=== PATIENT | male | born 1935 | race Caucasian/White ===

== ENCOUNTER 2018-06-28 00:32 | Inpatient (IN) | payer MEDICARE, OTHER ==
[~2018-06-28] VITALS: Ht 182.9 cm; Wt 90.9 kg
[~2018-06-28 00:32] MED LIST: FOLI1TAB16 PO; LANS30CA56 PO; MULT-1085 PO; OXYB5TAB29 PO; RAMI5CAP65 PO
[2018-06-28] MEDS ORDERED: normal saline 1000ml 1,000 ML IV ONE (01:00)
[2018-06-28] MEDS ORDERED: normal saline 1000ML IV soln IVB ONE (01:05)
[2018-06-28 01:25] LABS: CLARITY,URINE CLEAR (Clear); COLOR,URINE YELLOW (Yellow); GLUCOSE, URINE NEGATIVE (Neg); KETONES,URINE NEGATIVE (Neg); LEUKOCYTE ESTERASE ,URINE NEGATIVE (Neg); NITRITES, URINE NEGATIVE (Neg); OCCULT BLOOD,URINE NEGATIVE (Neg); PH,URINE 5.5 (4.8-8.0); PROTEIN,URINE NEGATIVE (Neg); UROBILINOGEN,URINE 0.2 E.U/dL (0.2-1.0)
[2018-06-28 01:29] LABS: UA COLLECTION TYPE CLN CATCH MIDSTREAM
[2018-06-28] MEDS ORDERED: DICY10CA88 PO (01:50)
[2018-06-28] MEDS ORDERED: POLY17PO10 PO (01:50)
[2018-06-28] MEDS ORDERED: PANT20TA3 PO (01:50)
[2018-06-28 01:57] LABS: ALANINE AMINOTRANSFERASE 25 U/L (12-78); ALBUMIN 2.1 G/DL (3.4-5.0); ALBUMIN/GLOBULIN RATIO 0.5 (1.1-1.5); ALKALINE PHOSPHATASE 219 IU/L (46-116); ANION GAP 13 (8-16); ASPARTATE AMINO TRANSFERASE 64 U/L (10-37); BASOPHILS # (AUTO) 0.1 X10'3 (0-0.2); BASOPHILS % (AUTO) 0.6 % (0-1); BLOOD UREA NITROGEN 29 MG/DL (7-18); BUN/CREATININE RATIO 14.2 (5.4-32.0); CALCIUM 8.7 MG/DL (8.5-10.1); CHLORIDE 103 MMOL/L (99-107); CREATININE 2.04 MG/DL (0.60-1.10); EOSINOPHILS % (AUTO) 0.3 % (0-6); GLUCOSE 109 MG/DL (70-104); HEMATOCRIT 36.5 % (42.0-52.0); HEMOGLOBIN 11.8 g/dl (14.0-17.9); LYMPHOCYTES # (AUTO) 0.9 X10'3 (1.1-4.8); LYMPHOCYTES % (AUTO) 5.2 % (21-51); MAGNESIUM 1.8 MG/DL (1.5-2.4); MEAN CORPUSCULAR HEMOGLOBIN 23.4 PG (27.0-31.0); MEAN CORPUSCULAR HGB CONC 32.4 % (33.0-36.5); MEAN CORPUSCULAR VOLUME 72.1 FL (78-98); MEAN PLATELET VOLUME 8.7 FL (7.4-10.4); MONOCYTES # (AUTO) 1.5 X10'3 (0-0.9); MONOCYTES % (AUTO) 9.2 % (2-12); NEUTROPHILS # (AUTO) 14.1 X10'3 (1.8-7.7); NEUTROPHILS % (AUTO) 84.7 % (42-75); PHOSPHORUS 3.4 MG/DL (2.3-4.5); PLATELET COUNT 456 X10'3 (140-440); POTASSIUM 3.8 MMOL/L (3.5-5.1); RED BLOOD COUNT 5.06 X10'6 (4.70-6.10); RED CELL DISTRIBUTION WIDTH 17.3 % (11.5-14.5); SODIUM 139 MMOL/L (135-145); TOTAL CARBON DIOXIDE 23.2 MMOL/L (24-32); TOTAL PROTEIN 6.1 G/DL (6.4-8.2); WHITE BLOOD COUNT 16.6 X10'3 (4.5-11.0); eGFR 31 ML/MIN
[2018-06-28] MEDS ORDERED: aspirin 325mg tablet PO ONE (02:10)
[2018-06-28 02:11] LABS: D-DIMER 7.51 MG/L FEU (0-0.50); INR 1.2 INR; PARTIAL THROMBOPLASTIN TIME 28 SECONDS (22-32); PROTHROMBIN TIME 12.4 SECONDS (9.0-12.0)
[2018-06-28] MEDS ORDERED: CefTRIAXone/D5W-Rocephin 1gm 50 ML IV ONE (02:15)
[2018-06-28] MEDS ORDERED: azithromycin/NS 500mg/250ml 250 ML IV ONE (02:15)
[2018-06-28] MEDS ORDERED: ASPI81TA52 PO (02:54)
[2018-06-28] MEDS ORDERED: OMEP40CA37 PO (02:54)
[2018-06-28] MEDS ORDERED: ETOD400T PO (02:54)
[2018-06-28] MEDS ORDERED: GLUC-133 PO (02:54)
[2018-06-28] MEDS ORDERED: ondansetron/PF 4mg/2ml inj IV PRN (04:00)
[2018-06-28] MEDS ORDERED: HYDROcodone/acetaminophen 10/325mg tab PO PRN (04:00)
[2018-06-28] MEDS ORDERED: magnesium hydroxide 30ml (MOM) UD suspension PO PRN (04:00)
[2018-06-28] MEDS ORDERED: acetaminophen 325mg tablet PO PRN ×2 (04:00)
[2018-06-28] MEDS ORDERED: HYDROcodone/acetaminophen 5mg/325mg tablet PO PRN (04:00)
[2018-06-28] MEDS ORDERED: mag hydrox/Alum hydrox/simeth 30ml oral suspension PO PRN (04:00)
[2018-06-28] MEDS: normal saline 1000ml 1,000 ML IV SCH ×3 (04:52→23:24)
[2018-06-28 05:15] VITALS: BP 127/72
[2018-06-28 05:30] LABS: CHOLESTEROL 193 MG/DL (0-200); HDL CHOLESTEROL 24 MG/DL (35-60); LDL CHOLESTEROL 157 MG/DL (50-100); TRIGLYCERIDES 74 MG/DL (20-135)
[2018-06-28 06:00] VITALS: BP 116/70
[2018-06-28 06:31] LABS: LACTIC SEPSIS 1.7 MMOL/L (0.4-2.0)
[2018-06-28] MEDS: pantoprazole 40mg Tablet.DR PO SCH (07:49)
[2018-06-28] MEDS: lisinopril 20mg tablet PO SCH ×2 (07:49→08:00)
[2018-06-28] MEDS: aspirin 81mg tablet.DR PO SCH (07:49)
[2018-06-28] MEDS ORDERED: aspirin 81mg tablet.DR PO SCH (08:00)
[2018-06-28] MEDS ORDERED: enoxaparin 40mg/0.4ml syringe SUBCUT SCH (08:00)
[2018-06-28] MEDS ORDERED: non-formulary drug (Gluc 2KCL/Chondr/Coll Hy/Hy Ac (Glucosamine & Chondroitin Cap) 1 EACH) PO SCH (08:00)
[2018-06-28] MEDS ORDERED: levoFLOXACIN-Levaquin 500mg/D5 100 ML IV SCH ×2 (08:00→21:07)
[2018-06-28 11:00] VITALS: BP 99/54
[2018-06-28 17:48] VITALS: BP 99/54
[2018-06-28 18:00] VITALS: BP 115/66
[2018-06-28] MEDS: atorvastatin 20mg tablet PO SCH (19:46)
[2018-06-28] MEDS ORDERED: enoxaparin 30mg/0.3ml syringe SUBCUT SCH (21:05)
[2018-06-28 22:00] VITALS: BP 125/68
[2018-06-29] VITALS (8 sets, daily range): BP systolic 117–128; BP diastolic 62–72
[2018-06-29 06:53] LABS: ALANINE AMINOTRANSFERASE 21 U/L (12-78); ALBUMIN 1.7 G/DL (3.4-5.0); ALBUMIN/GLOBULIN RATIO 0.5 (1.1-1.5); ALKALINE PHOSPHATASE 174 IU/L (46-116); ANION GAP 11 (8-16); ASPARTATE AMINO TRANSFERASE 59 U/L (10-37); BILIRUBIN,TOTAL 1.6 MG/DL (0.1-1.0); BLOOD UREA NITROGEN 29 MG/DL (7-18); BUN/CREATININE RATIO 18.2 (5.4-32.0); CALCIUM 8.3 MG/DL (8.5-10.1); CHLORIDE 106 MMOL/L (99-107); CREATININE 1.59 MG/DL (0.60-1.10); GLUCOSE 92 MG/DL (70-104); MAGNESIUM 1.7 MG/DL (1.5-2.4); POTASSIUM 3.8 MMOL/L (3.5-5.1); SODIUM 139 MMOL/L (135-145); TOTAL CARBON DIOXIDE 21.6 MMOL/L (24-32); TOTAL PROTEIN 5.3 G/DL (6.4-8.2); eGFR 42 ML/MIN
[2018-06-29 06:57] LABS: BASOPHILS % (AUTO) 0.3 % (0-1); EOSINOPHILS # (AUTO) 0.3 X10'3 (0-0.9); EOSINOPHILS % (AUTO) 2.5 % (0-6); HEMATOCRIT 34.2 % (42.0-52.0); HEMOGLOBIN 10.8 g/dl (14.0-17.9); LYMPHOCYTES # (AUTO) 0.8 X10'3 (1.1-4.8); LYMPHOCYTES % (AUTO) 6.5 % (21-51); MEAN CORPUSCULAR HEMOGLOBIN 23.3 PG (27.0-31.0); MEAN CORPUSCULAR HGB CONC 31.6 % (33.0-36.5); MEAN CORPUSCULAR VOLUME 73.7 FL (78-98); MEAN PLATELET VOLUME 8.5 FL (7.4-10.4); MONOCYTES # (AUTO) 1.4 X10'3 (0-0.9); MONOCYTES % (AUTO) 12.1 % (2-12); NEUTROPHILS # (AUTO) 9.2 X10'3 (1.8-7.7); NEUTROPHILS % (AUTO) 78.6 % (42-75); PLATELET COUNT 402 X10'3 (140-440); RED BLOOD COUNT 4.64 X10'6 (4.70-6.10); RED CELL DISTRIBUTION WIDTH 18.6 % (11.5-14.5); WHITE BLOOD COUNT 11.8 X10'3 (4.5-11.0)
[2018-06-29 07:12] LABS: INR 1.3 INR; PROTHROMBIN TIME 12.8 SECONDS (9.0-12.0)
[2018-06-29] MEDS: pantoprazole 40mg Tablet.DR PO SCH (07:24)
[2018-06-29] MEDS: atorvastatin 20mg tablet PO SCH (07:24)
[2018-06-29] MEDS: aspirin 81mg tablet.DR PO SCH (07:25)
[2018-06-29] MEDS: lisinopril 20mg tablet PO SCH (07:25)
[2018-06-29] MEDS ORDERED: predniSONE 20 mg tablet PO SCH (09:00)
[2018-06-29] MEDS ORDERED: LIDOcaine 0.5% (5mg/ml) 50ml vial ONE (13:37)
[2018-06-29] MEDS ORDERED: dexamethasone 4mg/ml inj IM SCH (14:00)
[2018-06-29] MEDS: dexamethasone 4mg/ml inj IV SCH ×2 (14:00→20:33)
[2018-06-30] VITALS: BP 125/71
[2018-06-30] MEDS: dexamethasone 4mg/ml inj IV SCH ×4 (01:55→21:05)
[2018-06-30 06:18] LABS: BASOPHILS % (AUTO) 0.2 % (0-1); EOSINOPHILS # (AUTO) 0.3 X10'3 (0-0.9); EOSINOPHILS % (AUTO) 1.7 % (0-6); HEMATOCRIT 36.4 % (42.0-52.0); HEMOGLOBIN 11.4 g/dl (14.0-17.9); LYMPHOCYTES # (AUTO) 0.6 X10'3 (1.1-4.8); LYMPHOCYTES % (AUTO) 3.8 % (21-51); MEAN CORPUSCULAR HEMOGLOBIN 23.1 PG (27.0-31.0); MEAN CORPUSCULAR HGB CONC 31.3 % (33.0-36.5); MEAN CORPUSCULAR VOLUME 73.8 FL (78-98); MEAN PLATELET VOLUME 8.2 FL (7.4-10.4); MONOCYTES # (AUTO) 0.5 X10'3 (0-0.9); MONOCYTES % (AUTO) 3.7 % (2-12); NEUTROPHILS # (AUTO) 13.4 X10'3 (1.8-7.7); NEUTROPHILS % (AUTO) 90.6 % (42-75); PLATELET COUNT 419 X10'3 (140-440); RED BLOOD COUNT 4.93 X10'6 (4.70-6.10); RED CELL DISTRIBUTION WIDTH 18.6 % (11.5-14.5); WHITE BLOOD COUNT 14.8 X10'3 (4.5-11.0)
[2018-06-30 06:26] LABS: INR 1.3 INR; PROTHROMBIN TIME 12.9 SECONDS (9.0-12.0)
[2018-06-30 06:28] LABS: ALANINE AMINOTRANSFERASE 25 U/L (12-78); ALBUMIN 1.7 G/DL (3.4-5.0); ALBUMIN/GLOBULIN RATIO 0.5 (1.1-1.5); ALKALINE PHOSPHATASE 184 IU/L (46-116); ANION GAP 11 (8-16); ASPARTATE AMINO TRANSFERASE 60 U/L (10-37); BILIRUBIN,TOTAL 1.4 MG/DL (0.1-1.0); BLOOD UREA NITROGEN 31 MG/DL (7-18); BUN/CREATININE RATIO 20.7 (5.4-32.0); CALCIUM 8.8 MG/DL (8.5-10.1); CHLORIDE 106 MMOL/L (99-107); GLUCOSE 146 MG/DL (70-104); MAGNESIUM 1.9 MG/DL (1.5-2.4); POTASSIUM 4.3 MMOL/L (3.5-5.1); SODIUM 139 MMOL/L (135-145); TOTAL CARBON DIOXIDE 21.7 MMOL/L (24-32); TOTAL PROTEIN 5.4 G/DL (6.4-8.2); eGFR 45 ML/MIN
[2018-06-30] MEDS ORDERED: DEC4T PO (08:59)
[2018-06-30] MEDS ORDERED: PANT40TA4 PO (08:59)
[2018-06-30] MEDS: lisinopril 20mg tablet PO SCH (09:56)
[2018-06-30] MEDS: pantoprazole 40mg Tablet.DR PO SCH (09:56)
[2018-06-30 10:39] VITALS: BP 126/81
[2018-06-30] MEDS ORDERED: levoFLOXACIN 500mg tablet PO SCH (11:00)
[2018-06-30 12:36] VITALS: BP 96/63
[2018-06-30 20:00] VITALS: BP 102/66
[2018-06-30] MEDS: lactobacillus rhamnosus 10,000 MMU CELLS/CAPSULE PO SCH (21:04)
[2018-07-01] VITALS: BP 120/67
[2018-07-01] MEDS: dexamethasone 4mg/ml inj IV SCH ×2 (01:38→07:47)
[2018-07-01] MEDS: lactobacillus rhamnosus 10,000 MMU CELLS/CAPSULE PO SCH (07:50)
[2018-07-01] MEDS: pantoprazole 40mg Tablet.DR PO SCH (07:50)
[2018-07-01] MEDS: lisinopril 20mg tablet PO SCH (07:57)
[2018-07-01 08:00] VITALS: BP 112/66
[2018-07-01 11:00] VITALS: BP 109/66
== END 2018-07-01 11:15 | disposition hospice, home (50) | DRG 64 ==
LOC: ER 00:33 → ED HOLD 04:00 → PCU 3S 05:09 → SUR 3N 06-29 16:39
PROVIDERS: ADMIT Hospitalist; ATTEND Internal Medicine
PROC: 0W9G3ZZ Drainage of Peritoneal Cavity, Percutaneous Approach (ICD-10-PCS; principal; 2018-06-29)
PROC: 3E02340 Introduction of Influenza Vaccine into Muscle, Percutaneous Approach (ICD-10-PCS; 2018-06-29)
DX: I63.9 Cerebral infarction, unspecified (principal); E43 Unspecified severe protein-calorie malnutrition; J18.1 Lobar pneumonia, unspecified organism; C78.7 Secondary malignant neoplasm of liver and intrahepatic bile duct; C79.31 Secondary malignant neoplasm of brain; C78.6 Secondary malignant neoplasm of retroperitoneum and peritoneum; J90 Pleural effusion, not elsewhere classified; N17.9 Acute kidney failure, unspecified; N20.1 Calculus of ureter; R18.8 Other ascites; J44.0 Chronic obstructive pulmonary disease with (acute) lower respiratory infection; J96.11 Chronic respiratory failure with hypoxia; D63.8 Anemia in other chronic diseases classified elsewhere; G93.89 Other specified disorders of brain; I65.23 Occlusion and stenosis of bilateral carotid arteries; K44.9 Diaphragmatic hernia without obstruction or gangrene; K80.20 Calculus of gallbladder without cholecystitis without obstruction; Z96.649 Presence of unspecified artificial hip joint; Z96.653 Presence of artificial knee joint, bilateral; M19.90 Unspecified osteoarthritis, unspecified site; R16.0 Hepatomegaly, not elsewhere classified; Z23 Encounter for immunization; Z88.0 Allergy status to penicillin; Z88.2 Allergy status to sulfonamides; Z91.018 Allergy to other foods; Z79.899 Other long term (current) drug therapy; Z68.27 Body mass index [BMI] 27.0-27.9, adult
CPT/HCPCS: 36415; 49083; 70450; 70544; 70551; 71250; 74176; 80053; 80061; 81003; 82140; 82948; 83605; 83735; 84100; 84484; 85025; 85379; 85610; 85730; 87070; 88108; 88305; 88341; 88342; 92616; 93005; 93306; 93880; 96365; 96368; 97162; 97530; 99291; G0378; J0456; J0696; J1100; J1650; J1956; J2001; J7030; J7512